=== PATIENT | male | born 1995 | race Caucasian/White ===

== ENCOUNTER 2018-04-27 23:04 | Emergency (ER) | payer SELFPAY ==
[~2018-04-27] VITALS: Ht 177.8 cm; Wt 77.1 kg
[2018-04-27 23:13] VITALS: BP 139/78
--- NOTE | 2018-04-27 23:17 | NUR ---
PT SENT TO LOBBY, EVEN STEADY GAIT.
--- NOTE | 2018-04-27 23:37 | NUR ---
PT AMB W/O ASST TO ER BED 10
--- NOTE | 2018-04-27 23:48 | NUR ---
PT PRESENTS TO ED WITH C/O BILATERAL EAR REDNESS AND ITCHINESS TO EXTERNAL EARS X 1 WEEK. PT DENIES HEARING LOSS OR DIFFICULTY HEARING. PT DENIES PAIN AT THIS TIME. SMALL AMOUNT OF REDNESS NOTED TO EXTERNAL EARS EXTENDING INTO LOWER FACE BILATERALLY. PT PLACED IN BED AND PENDING MD KRISHNAMURTHY.
--- NOTE | 2018-04-28 01:08 | NUR ---
DPatient discharged with v/s stable. Written and verbal after care instructions given and explained. Patient alert, oriented and verbalized understanding of instructions. Ambulatory with steady gait. All questions addressed prior to discharge. ID band removed. Patient advised to follow up with PMD. Rx of MUPIROCIN 2% CREAM given. Patient educated on indication of medication including possible reaction and side effects. Opportunity to ask questions provided and answered.
[2018-04-28 01:09] VITALS: BP 143/75
== END 2018-04-28 01:09 | disposition home or self-care (01) ==
LOC: MED 23:04
DX: H60.13 Cellulitis of external ear, bilateral (principal); L03.211 Cellulitis of face
CPT/HCPCS: 99283